=== PATIENT | male | born 1945 | race Caucasian/White ===

== ENCOUNTER 2017-04-27 08:02 | Outpatient (CLI) | payer MEDICARE, OTHER ==
[2017-04-27 13:00] LABS: ALBUMIN/GLOBULIN RATIO 1.5 (1.0-2.2); BILIRUBIN,TOTAL 0.7 mg/dL (0.2-1.0); BUN - BLOOD UREA NITROGEN 15 mg/dL (6-20); CALCIUM 8.8 mg/dL (8.5-10.3); CARBON DIOXIDE - CO2 26 mmol/L (21-32); CHLORIDE 105 mmol/L (101-111); CHOL/HDL RATIO 2.9 (<5.0); CHOLESTEROL 108 mg/dL; CREATININE 0.8 mg/dL (0.6-1.2); GFR - MDRD 96 (>89); GLUCOSE 149 mg/dL (70-100); HDL CHOLESTEROL 37 mg/dL; LDL/HDL RATIO 0.7 (<3.6); POTASSIUM 4.1 mmol/L (3.5-5.0); SODIUM 139 mmol/L (135-145); TOTAL PROTEIN 6.7 g/dL (6.7-8.2); TRIGLYCERIDES 219 mg/dL; VLDL CHOLESTEROL 44 mg/dL
[2017-04-27 13:09] LABS: HEMOGLOBIN A1C 0.7 g/dL
== END 2017-04-27 08:03 | disposition home or self-care (01) ==
LOC: LAB.WCP 08:02
PROVIDERS: ATTEND Family Medicine
DX: R73.01 Impaired fasting glucose (principal); E78.5 Hyperlipidemia, unspecified; Z12.5 Encounter for screening for malignant neoplasm of prostate
CPT/HCPCS: 36415; 80053; 80061; 83036; G0103; 84153

== ENCOUNTER 2017-05-10 14:05 | Outpatient (CLI) | payer MEDICARE, OTHER ==
--- NOTE | 2017-05-11 11:59 | Ultrasound Report ---
BILATERAL LOWER EXTREMITY ARTERIAL DUPLEX: 05/10/2017 CLINICAL INDICATION: Claudication. TECHNIQUE: Real-time sonographic vascular imaging was performed by the chief building inspector through the lower extremities utilizing both color-flow and Doppler spectral analysis. Multiple merchandiser retail representative static images were saved for review. RIGHT SIDE SITE PSV WAVEFORM STEN POWER DISTRIBUTION ENGINEER 123 biphasic PSFA 93 biphasic MSFA 82 triphasic DSFA 71 triphasic PFA 112 biphasic POP 58 triphasic VALENTIN 23 biphasic BUTTING SAW OPERATOR 83 triphasic PER 55 biphasic DPA 60 triphasic LEFT SIDE SITE PSV WAVEFORM STEN POWER DISTRIBUTION ENGINEER 94 triphasic PSFA 90 triphasic MSFA 82 triphasic DSFA 72 triphasic PFA 59 biphasic POP 56 triphasic VALENTIN 83 biphasic BUTTING SAW OPERATOR 65 triphasic PER 49 triphasic DPA 22 triphasic TECHNIQUE: Real-time scanning was performed. RIGHT LEG: Waveforms are predominantly triphasic. There is no evidence of a focal velocity increase to suggest a hemodynamically significant stenosis. LEFT LEG: Waveforms are predominantly triphasic. There is no evidence of a focal velocity increase to suggest a hemodynamically significant stenosis. IMPRESSION: NO EVIDENCE OF A FOCAL HEMODYNAMICALLY SIGNIFICANT ARTERIAL STENOSIS IN EITHER LEG. ALEJANDROD
== END 2017-05-10 14:06 | disposition home or self-care (01) ==
LOC: DI 14:05
PROVIDERS: ATTEND Family Medicine
DX: I73.9 Peripheral vascular disease, unspecified (principal)
CPT/HCPCS: 93925

== ENCOUNTER 2017-05-19 13:11 | Outpatient (CLI) | payer MEDICARE, OTHER ==
--- NOTE | 2017-05-19 18:19 | MRI Report ---
EXAM: MRI LUMBAR SPINE WITHOUT CONTRAST EXAM DATE: 05/19/2017 01:56 PM. CLINICAL HISTORY: 71-year-old with chronic low back pain and intermittent pain radiating to the hips and legs COMPARISON: None. TECHNIQUE: Multiplanar, multisequence T1-weighted and fluid-sensitive sequences of the lumbar spine f rom T12 to S1 without contrast. Other: None. FINDINGS: Spinal Cord: The conus terminates at L1-L2. No signal abnormality in the visualized spinal cord. Alignment: There is grade 1 retrolisthesis of L2 on L3, L3 on L4, L4 and L5. There is grade 1 anterol isthesis of L5 on S1. Bone Marrow: Five nxl-opu-[id number] lumbar vertebral bodies are assumed. Moderate endplate degenerative changes, Schmorl's node formation, moderate loss of disk, disk desiccation seen at L4-L5 and L5-S1. There is mild endplate degenerative change, Schmorl's node formation, minimal to mild loss of disk he ight and disk desiccation seen at L1-L2 , L2-L3 and L3-L4. There is endplate edema seen at L4-L5 and L5-S1 is likely degenerative in nature. No acute fracture. A T12 and L5 vertebral body hemangiomas are seen. Disk Levels/Facets: T12-L1: Unremarkable. L1-L2: Slight posterior disk bulge. Ligament thickening, arthritic facet disease, prominent dorsal ep idural fat. Mild spinal canal stenosis. Minimal bilateral neural femoral narrowing. L2-L3: Slight posterior disk bulge. Ligament thickening, arthritic facet disease, prominent dorsal ep idural fat. Mild spinal canal stenosis. Mild bilateral neural femoral narrowing. L3-L4: Slight posterior disk bulge. Ligament thickening, arthritic facet disease, prominent dorsal ep idural fat. Mild spinal canal stenosis. Mild bilateral neural femoral narrowing. L4-L5: Slight posterior disk bulge. Ligament thickening, arthritic facet disease, prominent dorsal ep idural fat. Mild spinal canal stenosis. Severe right and vcobigdw-rx-eaxwqc left neural femoral narro wing.. L5-S1: Slight posterior disk bulge. Bilateral facet disease. Effacement of the ventral thecal sac. Mo derate to severe bilateral neural foraminal narrowing. Musculature: Normal. No edema or fatty atrophy. Other: The visualized pelvic cavity is unremarkable. IMPRESSION: 1. There is grade 1 retrolisthesis of L2 on L3, L3 on L4, L4 and L5. 2. There is grade 1 anterolisthesis of L5 on S1. 3. Mild multilevel degenerative changes. L1-L2: Mild spinal canal stenosis. Minimal bilateral neural femoral narrowing. L2-L3: Mild spinal canal stenosis. Mild bilateral neural femoral narrowing. L3-L4: Mild spinal canal stenosis. Mild bilateral neural femoral narrowing. L4-L5: Mild spinal canal stenosis. Severe right and xehgtdxy-sv-agbjxh left neural femoral narrowing. L5-S1: Effacement of the ventral thecal sac. Moderate to severe bilateral neural foraminal narrowing. Comment: The following findings are so common in adults without low back pain that while we report th eir presence, they must be interpreted with caution and in the context of the clinical situation. (Re gaurang Piper et al, Spine 2001) Prevalence of findings in patients without low back pain: Disk degeneration (any evidence): 92% Disk desiccation/T2 signal loss: 83% Disk height loss: 56% Disk bulge: 64% Disk protrusion: 32% Annular tear/high intensity zone: 38% RADIA Referring Provider Line: [phone] SITE ID: [id number]
== END 2017-05-19 13:12 | disposition home or self-care (01) ==
LOC: DI 13:11
PROVIDERS: ATTEND Family Medicine
DX: M46.96 Unspecified inflammatory spondylopathy, lumbar region (principal); I73.9 Peripheral vascular disease, unspecified; M48.06 Spinal stenosis, lumbar region
CPT/HCPCS: 72148

== ENCOUNTER 2018-05-31 07:49 | Outpatient (CLI) | payer MEDICARE, OTHER ==
[2018-05-31 13:00] LABS: BASOPHILS # (AUTO) 0.1 10^3/uL (0.0-0.1); BASOPHILS % (AUTO) 0.7 %; EOSINOPHILS # (AUTO) 0.2 10^3/uL (0.0-0.7); HGB - HEMOGLOBIN 14.5 g/dL (14.0-18.0); LYMPHOCYTES # (AUTO) 1.8 10^3/uL (1.5-3.5); LYMPHOCYTES % (AUTO) 22.4 %; MEAN CORPUSCULAR HEMOGLOBIN 31.2 pg (27.0-31.0); MEAN CORPUSCULAR HGB CONC 33.4 g/dL (32.0-36.0); MEAN CORPUSCULAR VOLUME 93.3 fL (80.0-94.0); MEAN PLATELET VOLUME 10.6 fL (7.4-11.4); MONOCYTES # (AUTO) 0.7 10^3/uL (0.0-1.0); MONOCYTES % (AUTO) 8.8 %; NEUTROPHILS # (AUTO) 5.2 10^3/uL (1.5-6.6); NEUTROPHILS % (AUTO) 66.1 %; PLT - PLATELET COUNT 171 10^3/uL (130-450); RED BLOOD COUNT 4.65 10^6/uL (4.70-6.10); WHITE BLOOD COUNT 7.9 x10^3/uL (4.8-10.8)
[2018-05-31 13:11] LABS: ALBUMIN 4.1 g/dL (3.2-5.5); ALBUMIN/GLOBULIN RATIO 1.4 (1.0-2.2); ALKALINE PHOSPHATASE 54 IU/L (42-121); ALT ALANINE AMINOTRANSFERASE 25 IU/L (10-60); AST ASPARTATE AMINOTRANSFERASE 22 IU/L (10-42); BILIRUBIN,TOTAL 0.6 mg/dL (0.2-1.0); BUN - BLOOD UREA NITROGEN 19 mg/dL (6-20); CALCIUM 9.2 mg/dL (8.5-10.3); CARBON DIOXIDE - CO2 29 mmol/L (21-32); CHLORIDE 102 mmol/L (101-111); CHOL/HDL RATIO 2.8 (<5.0); CHOLESTEROL 94 mg/dL; CREATININE 0.8 mg/dL (0.6-1.2); GFR - MDRD 95 (>89); GLUCOSE 164 mg/dL (70-100); HB2 TOTAL 15.4 g/dL; HDL CHOLESTEROL 33 mg/dL; HEMOGLOBIN A1C 0.77 g/dL; HEMOGLOBIN A1C % 6.7 % (4.6-6.2); LDL CHOLESTEROL,CALCULATED 20 mg/dL; LDL/HDL RATIO 0.6 (<3.6); SODIUM 140 mmol/L (135-145); TOTAL PROTEIN 7.1 g/dL (6.7-8.2); VLDL CHOLESTEROL 41 mg/dL
== END 2018-05-31 07:50 | disposition home or self-care (01) ==
LOC: LAB.WCP 07:49
PROVIDERS: ATTEND Family Medicine
DX: I48.0 Paroxysmal atrial fibrillation (principal); R73.01 Impaired fasting glucose; E78.5 Hyperlipidemia, unspecified; Z12.5 Encounter for screening for malignant neoplasm of prostate; R94.6 Abnormal results of thyroid function studies
CPT/HCPCS: 36415; 80053; 80061; 83036; 84443; 85025; G0103; 83721; 84153

== ENCOUNTER 2019-02-22 08:38 | Outpatient (CLI) | payer MEDICARE, OTHER | END 2019-02-22 08:39 | disposition home or self-care (01) | LOC: SC 08:38 | PROVIDERS: ATTEND Nurse Practitioner Family | DX: G47.10 Hypersomnia, unspecified (principal); R06.81 Apnea, not elsewhere classified; G47.8 Other sleep disorders; R53.83 Other fatigue | CPT/HCPCS: 99204; G0463; 99212 ==

== ENCOUNTER 2019-02-26 20:32 | Outpatient (CLI) | payer MEDICARE, OTHER | END 2019-02-26 20:33 | disposition home or self-care (01) | LOC: SC 20:32 | PROVIDERS: ATTEND Internal Medicine Pulmonary Disease | DX: G47.33 Obstructive sleep apnea (adult) (pediatric) (principal); G47.61 Periodic limb movement disorder; I48.92 Unspecified atrial flutter; E66.01 Morbid (severe) obesity due to excess calories; Z68.41 Body mass index [BMI] 40.0-44.9, adult; Z71.3 Dietary counseling and surveillance | CPT/HCPCS: 95810 ==

== ENCOUNTER 2019-03-13 09:12 | Outpatient (CLI) | payer MEDICARE, OTHER | END 2019-03-13 09:13 | disposition home or self-care (01) | LOC: SC 09:12 | PROVIDERS: ATTEND Nurse Practitioner Family | DX: G47.33 Obstructive sleep apnea (adult) (pediatric) (principal); G47.61 Periodic limb movement disorder; I48.92 Unspecified atrial flutter | CPT/HCPCS: 99215; G0463; 99212 ==

== ENCOUNTER 2019-04-08 20:25 | Outpatient (CLI) | payer MEDICARE, OTHER | END 2019-04-08 20:26 | disposition home or self-care (01) | LOC: SC 20:25 | PROVIDERS: ATTEND Nurse Practitioner Family | DX: G47.33 Obstructive sleep apnea (adult) (pediatric) (principal); G47.61 Periodic limb movement disorder | CPT/HCPCS: 95811 ==

== ENCOUNTER 2019-04-30 10:55 | Outpatient (CLI) | payer MEDICARE, OTHER ==
[2019-05-14 11:21] VITALS: BP 116/70
--- NOTE | 2019-05-14 11:21 | SLEEP CARE CONSULTATION ---
Information from patient questionnaire entered by Gloria Linton. I have reviewed and concur with the information entered by Gloria Linton. This document represents the service I personally performed and the decisions made by me, Jannet Mosely, RN, MSN, [employer]. History of Present Illness Previous diagnosis: Severe, Obstructive Sleep Apnea-Hypopnea Syndrome AHI: 41.3 Reason for CPAP/BiPAP follow up: first compliance, with sleep study (review of manual titration results) Equipment type: CPAP Equipment obtained from: [facility] Mask style: Full face Mask brand: Respironics Prior sleep studies: Yes Year and Where: [address] [facility] additional information: Review of past medical history shows that patient had a cardioversion for arrhythmia with success and his rhythm was regular on sleep study. Sleep Study - Polysomnography Polysomnography findings: The quality of the study is good. CPAP was initiated at 4 cmH2O and titrated up to CPAP at [id number]. CPAP at 12 cmH2O appeared to be optimal (AHI of 2.3 per hour on the pressure). There was REM sleepon the pressure. Oxygen saturation was mildly low due to frequent residual respiratory events on lower CPAP settings. The patient appeared to have tolerated positive airway pressure therapy fairly well. The patients sleep efficiency was reduced due to a prolonged awakening near the end of the study. The sleep architecture was abnormal for sleep fragmentation and reduced amount of time spent in slow wave sleep (N3). There was moderate periodic limb movement of sleep not associated with sleep fragmentation. Cardiac rhythm was normal sinus rhythm without significant arrhythmia. No abnormal behavior (parasomnia) observed during the night. CPAP Compliance Data - Data Reviewed with Patient Average duration of nightly device use: 8H 52M Compliance rate %: 96.7 Current pressure setting (cmH2O): 4-15 Humidity settin Heated hose settin Average residual AHI: 1.4 Average large leak: 23 seconds Subjective Missed days of use due to: reports: other (sleep study - titration) Patient concerns: reports: mask leak noise (he is waking to mask leak noise when changes position, adjusting mask and going back to sleep. ), condensation in mask/hose (intermittent ), dry mouth, nose, throat (very little), other (straps garcia only if pulls mask too tight. ). denies: aerophagia, mask discomfort, air blowing in eyes, nasal congestion, epistaxis Observed to snore while using device: No Current pressure setting perceived as: comfortable On therapy, patient: reports: sleeping better, awakening more refreshed, being more awake and alert during the day, more rested overall. denies: drowsiness while driving Initial [place] Sleepiness Scale score: 11 Current [place] Sleepiness Scale score: 6 Allergies and Home Medications Known drug allergies: No Home medication list reviewed: Yes Allergy and home medication list: Medication Name (generic/name brand) Strength & Dosage Allopurinol (Zyloprim) 100mg tab one twice daily Amoxicillin 500mg cap for dental procedures Apixaban (Eliquis) 5mg tab one twice daily Indomethacin (Indocin) 25mg cap one twice daily Isosorbide Mononitrate ER (Imdur) 60mg tab one twice daily Micardis 40mg tab one every morning Nitroglycerin (Nitrostat) 0.4mg SL tab as directed for chest pain Simvastatin (Zocor) 40mg tab one every evening Sotalol (Betapace) 120mg tab one twice daily Tamsulosin (Flomax) 0.4mg cap one nightly Pantoprazole (Protonix) 40mg tab one every morning before bfast Aspirin 81mg chewable tab one every evening Multivitamin Cap one daily Review of Systems Review of systems same as previous: No Cardiovascular: reports: high blood pressure, chest pain, irregular heart rate or pulse ( Successful cardioversion in March 2019), leg or foot swelling Respiratory: reports: shortness of breath Urinary: reports: urgency Ear/Nose/Throat: reports: dry mouth/throat Endocrine: reports: sluggishness (less with cardioversion and CPAP), unexplained weakness Musculoskeletal: reports: joint pain Immunologic: reports: sneezing Physical Exam Blood Pressure: 116/70 Cuff size: long Heart Rate: 75 O2 Saturation: 94 Height: 5 ft 9.75 in Weight (kg): 128.639 kg Body Mass Index: 40.9 BMI Classification: Class 3 Impression and Plan 1. Obstructive Sleep Apnea-Hypopnea Syndrome, severe, with good treatment compliance and good apnea control. On CPAP therapy, the patient has better sleep quality and is more rested overall. His manual titration showed best apnea control 12 cmH20 at present weight. However, he is planning on losing more weight and I explained how less weight can reduce pressure requirements. Thus I will change his autoCPAP pressure to [id number] which was also recommended on his study. He is advised to contact me if pressure change is uncomfortable and advised of symptoms to report to have pressure adjusted if loses significant weight. I showed him how to use the ramp as well. Currently he states the starting pressure is too low so I will have it adjusted to 6cmH20 for his ramp start. For oral dryness, he is to keep the humidity at maximum. He can adjust the heated hose lower when he travels to warmer weather for the winter at the end of this month and only increase hose setting if condensation as shown on sample CPAP. He is also cautioned not to overfill the reservoir which can cause condensation. He has met insuurance compliance goals but if any problems while out of state, he is to contact this office. I can assist him over the phone. Otherwise he is to return for follow up on return to state next spring. Supply replacement schedule list given and rationale to change supplies discussed. Patient's apnea severity and rationale for treatment to reduce apnea, improve sleep quality and reduce cardiovascular and cerebrovascular events was reviewed. I also reviewed the benefit of consistent device use of CPAP for cardiac disease, arrhythmia. 2. Periodic limb movement , moderate, not fragmenting sleep on sleep study nor is it noted by his spouse. So no treatment indicated at this time. As noted last visit, further evaluation needed only if symptoms worsen. * Change CPAP pressure to 10-14 cmH2O * Adjust ramp to 6cmH20 * Adjust heated hose. * Schedule of CPAP supply replacement given. * Notify me if snoring with mask or feeling that the pressure is too much or too little * Attempt to lose weight * Return for follow up in 6 months upon [facility], or sooner if concerns arise I spent 100% of this [45 ] minute visit face to face with the patient with greater than 50% of this was spent time counseling the patient and coordination of care.
== END 2019-04-30 10:56 | disposition home or self-care (01) ==
LOC: SC 10:55
PROVIDERS: ATTEND Nurse Practitioner Family
DX: G47.33 Obstructive sleep apnea (adult) (pediatric) (principal); G47.61 Periodic limb movement disorder
CPT/HCPCS: 99215; G0463; 99212

== ENCOUNTER 2020-01-25 09:42 | Outpatient (CLI) | payer MEDICARE, OTHER ==
[2020-01-25 13:19] LABS: BASOPHILS # (AUTO) 0.1 10^3/uL (0.0-0.1); BASOPHILS % (AUTO) 0.9 %; CREATININE,URINE 182.9 mg/dL; EOSINOPHILS # (AUTO) 0.2 10^3/uL (0.0-0.7); EOSINOPHILS % (AUTO) 2.9 %; HGB - HEMOGLOBIN 13.5 g/dL (14.0-18.0); LYMPHOCYTES # (AUTO) 1.5 10^3/uL (1.5-3.5); LYMPHOCYTES % (AUTO) 21.5 %; MEAN CORPUSCULAR HEMOGLOBIN 30.1 pg (27.0-31.0); MICROALBUM/CREATININE RATIO,UR 33.9 ug/mg (<30.0); MICROALBUMIN,URINE 6.2 mg/dL (0-300.0); MONOCYTES # (AUTO) 0.7 10^3/uL (0.0-1.0); MONOCYTES % (AUTO) 10.3 %; NEUTROPHILS # (AUTO) 4.4 10^3/uL (1.5-6.6); PLT - PLATELET COUNT 183 10^3/uL (130-450); RED BLOOD COUNT 4.49 10^6/uL (4.70-6.10); RED CELL DISTRIBUTION WIDTH 14.1 % (12.0-15.0); WHITE BLOOD COUNT 6.9 x10^3/uL (4.8-10.8)
[2020-01-25 13:40] LABS: HB2 TOTAL 14.2 g/dL; HEMOGLOBIN A1C 0.66 g/dL; HEMOGLOBIN A1C % 6.4 % (4.6-6.2)
[2020-01-25 13:56] LABS: ALBUMIN 3.9 g/dL (3.2-5.5); ALBUMIN/GLOBULIN RATIO 1.3 (1.0-2.2); ALKALINE PHOSPHATASE 64 IU/L (42-121); ALT ALANINE AMINOTRANSFERASE 31 IU/L (10-60); AST ASPARTATE AMINOTRANSFERASE 28 IU/L (10-42); BILIRUBIN,TOTAL 1.1 mg/dL (0.2-1.0); BUN - BLOOD UREA NITROGEN 19 mg/dL (6-20); CALCIUM 8.8 mg/dL (8.5-10.3); CARBON DIOXIDE - CO2 26 mmol/L (21-32); CHLORIDE 105 mmol/L (101-111); CHOL/HDL RATIO 2.8 (<5.0); CHOLESTEROL 93 mg/dL; CREATININE 0.8 mg/dL (0.6-1.2); GLUCOSE 161 mg/dL (70-100); HDL CHOLESTEROL 33 mg/dL; LDL CHOLESTEROL,CALCULATED 17 mg/dL; LDL/HDL RATIO 0.5 (<3.6); SODIUM 136 mmol/L (135-145); TOTAL PROTEIN 6.8 g/dL (6.7-8.2); URIC ACID 5.5 mg/dL (2.6-7.2); VLDL CHOLESTEROL 43 mg/dL
== END 2020-01-25 23:59 | disposition home or self-care (01) ==
LOC: LAB.WCP 09:42
PROVIDERS: ATTEND Family Medicine
DX: I48.0 Paroxysmal atrial fibrillation (principal); R73.09 Other abnormal glucose; R78.5 Finding of other psychotropic drug in blood; E78.5 Hyperlipidemia, unspecified; M10.9 Gout, unspecified; I25.10 Atherosclerotic heart disease of native coronary artery without angina pectoris
CPT/HCPCS: 36415; 80053; 80061; 82043; 82570; 83036; 83721; 84443; 84550; 85025

== ENCOUNTER 2020-02-13 16:47 | Outpatient (CLI) | payer MEDICARE, OTHER ==
--- NOTE | 2020-02-13 16:29 | SLEEP CARE CONSULTATION ---
Information from patient questionnaire entered by Leta Bliss. I have reviewed and concur with the information entered by Leta Bliss. This document represents the service I personally performed and the decisions made by me, Jannet Mosley, RN, MSN, GOSPEL WORKER. History of Present Illness Service Date and Time: 02/13/2020 1600 Previous diagnosis: Severe, Obstructive Sleep Apnea-Hypopnea Syndrome AHI: 41.3 (in 2019) Reason for follow up: other (9 month) Equipment type: CPAP Equipment obtained from: [facility] (getting supplies as needed) Mask style: Full face Mask brand: Respironics (Dreamwear full face) Backup mask available: Yes (old mask) Last cushion change: last night Prior sleep studies: Yes Year and Where: 2019 - [facility] Type of Sleep Study: Polysomnography CPAP Compliance Data - Data Reviewed with Patient Average duration of nightly device use: 8.9 Compliance rate %: 100 (180 days) Current pressure setting (cmH2O): 10-14 Humidity settin Heated hose settin Average residual AHI: 0.1 Average large leak: 0 Subjective Patient concerns: reports: air blowing in eyes (rare - resolves with mask adjustment), condensation in mask/hose (1-2 times a week when up here ). denies: aerophagia, mask discomfort, mask leak noise, nasal congestion, dry mouth, nose, throat, epistaxis Observed to snore while using device: No Current pressure setting perceived as: too high (not comfortable at higher ranges) On therapy, patient: reports: sleeping better (dry lips occasional ), being more awake and alert during the day, more rested overall. denies: drowsiness while driving Initial [place] Sleepiness Scale score: 11 (in 2019) Allergies and Home Medications Home medication list reviewed: No (no changes) Review of Systems Review of systems same as previous: Yes Physical Exam Height: 5 ft 9.75 in Weight: 280 lb Body Mass Index: 40.4 BMI Classification: Morbidly Obese Impression and Plan 1. Obstructive Sleep Apnea-Hypopnea Syndrome, severe, with good treatment compliance and good apnea control. On CPAP therapy, the patient has better sleep quality and is more rested overall. He is pleased with benefit of treatment. Since starting his CPAP and his medication adjusted, his arrhythmia is much less. However, the pressure is not comfortable at higher settings. Thus after review of his compliance report, it showed that the 90% pressure range was [id number] but often it would increase to [id number]. Thus I will reduce his autoCPAP range to [id number]. He is to contact this office if the pressure change does not resolve symptoms or is uncomfortable. To reduce condensation, he is advised to reduce humidity or increase heated hose setting with rationale discussed. Patient is aware how to change settings. Patient is morbidly obese and advised to discuss weight loss with his PCP. I also explained how significant weight loss will reduce his apnea risk and CPAP pressure requirements. Symptoms to report for further PAP adjustment discussed. Patient's apnea severity and rationale for treatment to reduce apnea, improve sleep quality and reduce cardiovascular and cerebrovascular events was reviewed. I also reviewed the benefit of consistent device use of CPAP for hypertension, cardiac disease, arrhythmia. * Change auto CPAP pressure to 10-12 cmH2O * Adjust humidity/ heated hose. * Notify me if snoring with mask or feeling that the pressure is too much or too little * Attempt to lose weight * Call this office if any problems using CPAP * Return for follow up in 1 year , or sooner if concerns arise Visit Type: Telehealth Phone (to reduce risk of Covid 19 exposure) Patient Location: Home Location of Provider: Home Patient agrees and consents to this telehealth visit type: Yes Patient agrees to have their insurance billed: Yes Time Spent with Patient (minutes): 10+ Provider Statement: I spent 100% of the Telehealth Phone Call with the patient with greater than 50% spent counseling the patient and coordination of care.
== END 2020-02-13 16:48 | disposition home or self-care (01) ==
LOC: SC 16:47
PROVIDERS: ATTEND Nurse Practitioner Family
DX: G47.33 Obstructive sleep apnea (adult) (pediatric) (principal); E66.01 Morbid (severe) obesity due to excess calories; Z68.41 Body mass index [BMI] 40.0-44.9, adult

== ENCOUNTER 2021-01-23 08:31 | Outpatient (CLI) | payer MEDICARE, OTHER ==
--- NOTE | 2021-01-23 09:01 | SLEEP CARE CONSULTATION ---
Information from patient questionnaire entered by Leta Bliss. I have reviewed and concur with the information entered by Leta Bliss. This document represents the service I personally performed and the decisions made by , Silva Carrion ARNP. History of Present Illness Service Date and Time: 01/23/2021 0831 Previous diagnosis: Severe, Obstructive Sleep Apnea-Hypopnea Syndrome AHI: 41.3 (in 2019) Reason for follow up: annual (last seen 01/2020) Equipment type: CPAP Equipment obtained from: [facility] (getting supplies okay, but missed 2 shipments of supplies this year) Mask style: Full face Backup mask available: Yes (old mask) Last cushion change: 1 month Prior sleep studies: Yes Year and Where: 2019 - [facility] Type of Sleep Study: Polysomnography HPI additional information: SHAHEED THOMPSON was diagnosed to have severe, AHI 41.3, obstructive sleep apnea- hypopnea syndrome and returned today for CPAP therapy annual follow-up. CPAP Compliance Data - Data Reviewed with Patient Average duration of nightly device use: 8 hr 23 min Compliance rate %: 100 (180 days) Current pressure setting (cmH2O): 10-12 Humidity settin Heated hose settin Average residual AHI: 0.1 Average large leak: 0 sec Subjective Patient concerns: reports: mask leak noise (just when needs adjustment), dry mouth, nose, throat (occasionally, just adjust humidity as needed). denies: aerophagia, mask discomfort, air blowing in eyes, condensation in mask/hose, nasal congestion, epistaxis, other Observed to snore while using device: No Current pressure setting perceived as: comfortable On therapy, patient: reports: sleeping better, awakening more refreshed, being more awake and alert during the day, more rested overall. denies: drowsiness while driving Initial [place] Sleepiness Scale score: 11 (in 2019) Current [place] Sleepiness Scale score: 7 Allergies and Home Medications Home medication list reviewed: Yes (no new meds) Review of Systems Review of systems same as previous: Yes (no changes) Physical Exam Heart Rate: 63 O2 Saturation: 96 Height: 5 ft 9.75 in Weight: 290 lb Body Mass Index: 41.9 BMI Classification: Morbidly Obese Impression and Plan 1. Obstructive Sleep Apnea-Hypopnea Syndrome, severe, with excellent treatment compliance and excellent apnea control. On CPAP therapy, the patient has better sleep quality and is more rested overall. He has significant improvement of his sleep apnea and is satisfied with his treatment. He would like a DME supplier that will ship his supplies out of state. He was informed that he could use a [employer] company that could service him whether here or in [place]. He would like to think about it and [facility] as [facility] before transferring to different company. He is to call and let us know if we need to transfer DME services. Patient's apnea severity and rationale for treatment to reduce apnea, improve sleep quality and reduce cardiovascular and cerebrovascular events was reviewed. I also reviewed the benefit of consistent device use of CPAP for hypertension, cardiac disease, and arrhythmia. * Continue auto CPAP pressure at 10-12 cmH2O * Notify me if snoring with mask or feeling that the pressure is too much or too little * Attempt to lose weight * Call this office if any problems using CPAP * Return for follow up in 1 year, or sooner if concerns arise Counseling Topics: Spare mask, Weight loss health impact Visit Type: In Office Time Spent with Patient (minutes): 20 Provider Statement: I spent 100% of the Face to Face Visit with the patient with greater than 50% spent counseling the patient and coordination of care.
== END 2021-01-23 08:32 | disposition home or self-care (01) ==
LOC: SC 08:31
PROVIDERS: ATTEND Nurse Practitioner Family
DX: G47.33 Obstructive sleep apnea (adult) (pediatric) (principal); E66.01 Morbid (severe) obesity due to excess calories; Z68.41 Body mass index [BMI] 40.0-44.9, adult
CPT/HCPCS: 99213; G0463; 99212

== ENCOUNTER 2021-01-28 08:00 | Outpatient (CLI) | payer MEDICARE, OTHER ==
[2021-01-28 12:20] LABS: BASOPHILS # (AUTO) 0.1 10^3/uL (0.0-0.1); BASOPHILS % (AUTO) 0.8 %; EOSINOPHILS # (AUTO) 0.2 10^3/uL (0.0-0.7); EOSINOPHILS % (AUTO) 2.2 %; ESTIMATED AVERAGE GLUCOSE 146 mg/dL (70-100); HCT - HEMATOCRIT 42.8 % (42.0-52.0); HEMOGLOBIN A1c% 6.7 % (4.27-6.07); HGB - HEMOGLOBIN 13.8 g/dL (14.0-18.0); LYMPHOCYTES # (AUTO) 1.9 10^3/uL (1.5-3.5); LYMPHOCYTES % (AUTO) 24.3 %; MEAN CORPUSCULAR HEMOGLOBIN 30.9 pg (27.0-31.0); MEAN CORPUSCULAR HGB CONC 32.2 g/dL (32.0-36.0); MEAN CORPUSCULAR VOLUME 95.7 fL (80.0-94.0); MEAN PLATELET VOLUME 12.8 fL (7.4-11.4); MONOCYTES # (AUTO) 0.7 10^3/uL (0.0-1.0); MONOCYTES % (AUTO) 8.7 %; NEUTROPHILS # (AUTO) 4.9 10^3/uL (1.5-6.6); NEUTROPHILS % (AUTO) 63.3 %; PLT - PLATELET COUNT 179 10^3/uL (130-450); RED BLOOD COUNT 4.47 10^6/uL (4.70-6.10); RED CELL DISTRIBUTION WIDTH 14.1 % (12.0-15.0); WHITE BLOOD COUNT 7.7 x10^3/uL (4.8-10.8)
[2021-01-28 12:31] LABS: ALBUMIN/GLOBULIN RATIO 1.3 (1.0-2.2); ALKALINE PHOSPHATASE 60 IU/L (42-121); ALT ALANINE AMINOTRANSFERASE 28 IU/L (10-60); AST ASPARTATE AMINOTRANSFERASE 20 IU/L (10-42); BILIRUBIN,TOTAL 0.9 mg/dL (0.2-1.0); BUN - BLOOD UREA NITROGEN 21 mg/dL (6-20); CARBON DIOXIDE - CO2 28 mmol/L (21-32); CHLORIDE 102 mmol/L (101-111); CHOL/HDL RATIO 3.3 (<5.0); CHOLESTEROL 100 mg/dL; CREATININE 0.9 mg/dL (0.6-1.2); GFR - MDRD 82 (>89); GLUCOSE 183 mg/dL (70-100); HDL CHOLESTEROL 30 mg/dL; LDL CHOLESTEROL,CALCULATED 28 mg/dL; LDL/HDL RATIO 0.9 (<3.6); POTASSIUM 4.3 mmol/L (3.5-5.0); SODIUM 139 mmol/L (135-145); TRIGLYCERIDES 209 mg/dL; URIC ACID 5.6 mg/dL (2.6-7.2); VLDL CHOLESTEROL 42 mg/dL
[2021-01-28 12:38] LABS: THYROID STIMULATING HORMONE 2.94 uIU/mL (0.34-5.60)
== END 2021-01-28 23:59 | disposition home or self-care (01) ==
LOC: LAB.WCP 08:00
PROVIDERS: ATTEND Nurse Practitioner Family
DX: I48.0 Paroxysmal atrial fibrillation (principal); E78.5 Hyperlipidemia, unspecified; I25.10 Atherosclerotic heart disease of native coronary artery without angina pectoris; R73.03 Prediabetes; M10.9 Gout, unspecified
CPT/HCPCS: 36415; 80053; 80061; 83036; 83721; 84443; 84550; 85025

== ENCOUNTER 2022-01-05 07:23 | Outpatient (CLI) | payer MEDICARE, OTHER ==
[2022-01-05 12:03] LABS: BASOPHILS # (AUTO) 0.1 10^3/uL (0.0-0.1); BASOPHILS % (AUTO) 0.8 %; EOSINOPHILS # (AUTO) 0.2 10^3/uL (0.0-0.7); EOSINOPHILS % (AUTO) 2.7 %; HCT - HEMATOCRIT 42.1 % (42.0-52.0); HGB - HEMOGLOBIN 13.7 g/dL (14.0-18.0); LYMPHOCYTES # (AUTO) 2.6 10^3/uL (1.5-3.5); LYMPHOCYTES % (AUTO) 34.4 %; MEAN CORPUSCULAR HEMOGLOBIN 31.4 pg (27.0-31.0); MEAN CORPUSCULAR HGB CONC 32.5 g/dL (32.0-36.0); MEAN CORPUSCULAR VOLUME 96.3 fL (80.0-94.0); MEAN PLATELET VOLUME 12.7 fL (7.4-11.4); MONOCYTES # (AUTO) 0.6 10^3/uL (0.0-1.0); MONOCYTES % (AUTO) 8.1 %; NEUTROPHILS # (AUTO) 4.1 10^3/uL (1.5-6.6); NEUTROPHILS % (AUTO) 53.7 %; PLT - PLATELET COUNT 163 10^3/uL (130-450); RED BLOOD COUNT 4.37 10^6/uL (4.70-6.10); RED CELL DISTRIBUTION WIDTH 13.5 % (12.0-15.0); WHITE BLOOD COUNT 7.5 x10^3/uL (4.8-10.8)
[2022-01-05 12:19] LABS: ALBUMIN 3.9 g/dL (3.2-5.5); ALBUMIN/GLOBULIN RATIO 1.3 (1.0-2.2); ALKALINE PHOSPHATASE 58 IU/L (42-121); ALT ALANINE AMINOTRANSFERASE 30 IU/L (10-60); AST ASPARTATE AMINOTRANSFERASE 25 IU/L (10-42); BILIRUBIN,TOTAL 0.7 mg/dL (0.2-1.0); BUN - BLOOD UREA NITROGEN 17 mg/dL (6-20); CALCIUM 8.9 mg/dL (8.5-10.3); CARBON DIOXIDE - CO2 28 mmol/L (21-32); CHLORIDE 101 mmol/L (101-111); CHOL/HDL RATIO 3.3 (<5.0); CHOLESTEROL 105 mg/dL; CREATININE 0.8 mg/dL (0.6-1.2); GFR - MDRD 94 (>89); GLUCOSE 167 mg/dL (70-100); HDL CHOLESTEROL 32 mg/dL; LDL CHOLESTEROL,CALCULATED 20 mg/dL; LDL/HDL RATIO 0.6 (<3.6); POTASSIUM 4.1 mmol/L (3.5-5.0); SODIUM 138 mmol/L (135-145); TRIGLYCERIDES 264 mg/dL; VLDL CHOLESTEROL 53 mg/dL
[2022-01-05 12:24] LABS: THYROID STIMULATING HORMONE 3.7 uIU/mL (0.34-5.60)
== END 2022-01-05 07:24 | disposition home or self-care (01) ==
LOC: LAB.N 07:23
PROVIDERS: ATTEND Family Medicine
DX: I48.92 Unspecified atrial flutter (principal); I48.0 Paroxysmal atrial fibrillation; M10.9 Gout, unspecified; K21.9 Gastro-esophageal reflux disease without esophagitis; E78.5 Hyperlipidemia, unspecified; I25.10 Atherosclerotic heart disease of native coronary artery without angina pectoris; R73.03 Prediabetes
CPT/HCPCS: 36415; 80053; 80061; 81599; 83036; 83721; 84443; 85025

== ENCOUNTER 2022-09-23 08:56 | Outpatient (CLI) | payer MEDICARE, OTHER ==
[2022-09-23 12:42] LABS: BASOPHILS # (AUTO) 0.1 10^3/uL (0.0-0.1); BASOPHILS % (AUTO) 0.8 %; EOSINOPHILS # (AUTO) 0.1 10^3/uL (0.0-0.7); EOSINOPHILS % (AUTO) 1.8 %; HCT - HEMATOCRIT 41.4 % (42.0-52.0); HGB - HEMOGLOBIN 13.6 g/dL (14.0-18.0); LYMPHOCYTES # (AUTO) 2.2 10^3/uL (1.5-3.5); LYMPHOCYTES % (AUTO) 30.7 %; MEAN CORPUSCULAR HEMOGLOBIN 31.6 pg (27.0-31.0); MEAN CORPUSCULAR HGB CONC 32.9 g/dL (32.0-36.0); MEAN CORPUSCULAR VOLUME 96.1 fL (80.0-94.0); MEAN PLATELET VOLUME 12.7 fL (7.4-11.4); MONOCYTES # (AUTO) 0.6 10^3/uL (0.0-1.0); MONOCYTES % (AUTO) 8.5 %; NEUTROPHILS # (AUTO) 4.1 10^3/uL (1.5-6.6); NEUTROPHILS % (AUTO) 57.6 %; PLT - PLATELET COUNT 163 10^3/uL (130-450); RED BLOOD COUNT 4.31 10^6/uL (4.70-6.10); RED CELL DISTRIBUTION WIDTH 13.9 % (12.0-15.0); WHITE BLOOD COUNT 7.1 x10^3/uL (4.8-10.8)
[2022-09-23 12:45] LABS: CREATININE 0.8 mg/dL (0.6-1.2)
[2022-09-23 12:46] LABS: CREATININE,URINE 173.3 mg/dL; MICROALBUMIN,URINE 10.4 mg/dL (0-300.0)
[2022-09-23 12:57] LABS: ESTIMATED AVERAGE GLUCOSE 134 mg/dL (70-100); HEMOGLOBIN A1c% 6.3 % (4.27-6.07)
== END 2022-09-23 08:57 | disposition home or self-care (01) ==
LOC: LAB.N 08:56
PROVIDERS: ATTEND Physician Assistant
DX: I48.0 Paroxysmal atrial fibrillation (principal); R73.03 Prediabetes
CPT/HCPCS: 36415; 80048; 82043; 82570; 83036; 85025

== ENCOUNTER 2023-08-01 07:45 | Outpatient (CLI) | payer MEDICARE, OTHER ==
[2023-08-01 12:38] LABS: BASOPHILS # (AUTO) 0.1 10^3/uL (0.0-0.1); BASOPHILS % (AUTO) 0.8 %; EOSINOPHILS # (AUTO) 0.1 10^3/uL (0.0-0.7); EOSINOPHILS % (AUTO) 1.2 %; HCT - HEMATOCRIT 43.1 % (42.0-52.0); HGB - HEMOGLOBIN 13.9 g/dL (14.0-18.0); LYMPHOCYTES # (AUTO) 2.5 10^3/uL (1.5-3.5); LYMPHOCYTES % (AUTO) 26.6 %; MEAN CORPUSCULAR HEMOGLOBIN 30.4 pg (27.0-31.0); MEAN CORPUSCULAR HGB CONC 32.3 g/dL (32.0-36.0); MEAN CORPUSCULAR VOLUME 94.3 fL (80.0-94.0); MEAN PLATELET VOLUME 12.3 fL (7.4-11.4); MONOCYTES # (AUTO) 0.9 10^3/uL (0.0-1.0); MONOCYTES % (AUTO) 9.3 %; NEUTROPHILS # (AUTO) 5.7 10^3/uL (1.5-6.6); NEUTROPHILS % (AUTO) 61.7 %; PLT - PLATELET COUNT 217 10^3/uL (130-450); RED BLOOD COUNT 4.57 10^6/uL (4.70-6.10); RED CELL DISTRIBUTION WIDTH 14.5 % (12.0-15.0); WHITE BLOOD COUNT 9.2 x10^3/uL (4.8-10.8)
[2023-08-01 12:46] LABS: CREATININE,URINE 168.4 mg/dL; MICROALBUM/CREATININE RATIO,UR 20.8 ug/mg (<30.0); MICROALBUMIN,URINE 3.5 mg/dL
[2023-08-01 12:58] LABS: ALBUMIN 4.4 g/dL (3.2-5.5); ALBUMIN/GLOBULIN RATIO 1.8 (1.0-2.2); ALKALINE PHOSPHATASE 65 IU/L (42-121); ALT ALANINE AMINOTRANSFERASE 15 IU/L (10-60); AST ASPARTATE AMINOTRANSFERASE 16 IU/L (10-42); BILIRUBIN,TOTAL 0.8 mg/dL (0.2-1.0); BUN - BLOOD UREA NITROGEN 16 mg/dL (6-20); CALCIUM 9.4 mg/dL (8.5-10.3); CARBON DIOXIDE - CO2 29 mmol/L (21-32); CHLORIDE 104 mmol/L (101-111); CHOL/HDL RATIO 2.2 (<5.0); CHOLESTEROL 74 mg/dL; CREATININE 0.8 mg/dL (0.6-1.3); GFR - MDRD 94 (>89); GLUCOSE 150 mg/dL (74-104); HDL CHOLESTEROL 33 mg/dL; LDL CHOLESTEROL,CALCULATED 11 mg/dL; LDL/HDL RATIO 0.3 (<3.6); SODIUM 139 mmol/L (135-145); TOTAL PROTEIN 6.9 g/dL (6.4-8.9); TRIGLYCERIDES 150 mg/dL (48-352); VLDL CHOLESTEROL 30 mg/dL
[2023-08-01 13:33] LABS: ESTIMATED AVERAGE GLUCOSE 151 mg/dL (70-100); HEMOGLOBIN A1c% 6.9 % (4.27-6.07)
== END 2023-08-01 07:46 | disposition home or self-care (01) ==
LOC: LAB.N 07:45
PROVIDERS: ATTEND Physician Assistant
DX: I10 Essential (primary) hypertension (principal); R73.03 Prediabetes; E78.5 Hyperlipidemia, unspecified
CPT/HCPCS: 36415; 80053; 80061; 82043; 82570; 83036; 83721; 85025

== ENCOUNTER 2024-02-07 08:43 | Outpatient (CLI) | payer MEDICARE, OTHER ==
[2024-02-07 13:16] LABS: ALBUMIN 4.2 g/dL (3.2-5.5); ALBUMIN/GLOBULIN RATIO 1.4 (1.0-2.2); BILIRUBIN,TOTAL 1.2 mg/dL (0.2-1.0); CALCIUM 9.8 mg/dL (8.5-10.3); CREATININE 0.9 mg/dL (0.6-1.3); POTASSIUM 4.2 mmol/L (3.5-4.5); TOTAL PROTEIN 7.2 g/dL (6.4-8.9)
[2024-02-07 13:19] LABS: ESTIMATED AVERAGE GLUCOSE 140 mg/dL (70-100); HEMOGLOBIN A1c% 6.5 % (4.27-6.07)
[2024-02-07 13:36] LABS: THYROID STIMULATING HORMONE 2.96 uIU/mL (0.34-5.60)
== END 2024-02-07 08:44 | disposition home or self-care (01) ==
LOC: LAB.N 08:43
PROVIDERS: ATTEND Physician Assistant
DX: E11.9 Type 2 diabetes mellitus without complications (principal); R94.6 Abnormal results of thyroid function studies
CPT/HCPCS: 36415; 80053; 83036; 84443

== ENCOUNTER 2024-04-05 08:58 | Outpatient (CLI) | payer MEDICARE, OTHER ==
--- NOTE | 2024-04-05 09:33 | Sleep Patient Instructions ---
Sleep Center Visit Summary - Patient Visit Information Reason for Visit: 10-month follow-up - Patient Instructions Additional Instructions: You will continue with CPAP therapy with pressure set at 9-11 cmH2O. A supply prescription will be updated with your DME. I have added an order to update your PAP machine. Please call the office to schedule a compliance follow up once you get your new device. We encourage you to continue to try to lose weight. Please follow up with the sleep care office one month after obtaining new device. - Clinic Information Contact: [facility] [address] [place] [address] [email or web address] T: [phone]
--- NOTE | 2024-04-05 09:37 | SLEEP CARE CONSULTATION ---
Information from patient questionnaire entered by Chiqui Mobley. I have reviewed and concur with the information entered by Chiqui Mobley. This document represents the service I personally performed and the decisions made by me, Silva Carrion ARNP. History of Present Illness Service Date and Time: 04/05/2024 0858 Previous diagnosis: Severe, Obstructive Sleep Apnea-Hypopnea Syndrome AHI: 41.3 (in 2018) Reason for follow up: other (10 MONTH F/U DUE FOR NEW MACHINE) Equipment type: CPAP (PIERRE Dreamstation, s/u 03/26/2019) Equipment obtained from: Other ([facility]; getting supplies) Mask style: Full face Mask brand: Resmed (F20, AirTouch) Backup mask available: Yes Last cushion change: 2 weeks Prior sleep studies: Yes Year and Where: 2018 - [facility] Type of Sleep Study: Polysomnography HPI additional information: SHAHEED THOMPSON was diagnosed to have severe, AHI 41.3, obstructive sleep apnea- hypopnea syndrome and returned today for CPAP therapy ten month follow-up. Sleep Study - Results Type of Sleep Study: Polysomnography Prior sleep studies: Yes Year and Where: 2018 - [facility] CPAP Compliance Data - Data Reviewed with Patient Average duration of nightly device use: 7 HRS 46 MINS 8 SECS Compliance rate %: 100 (06/02/23-04/01/24; 305/305 days used) Current pressure setting (cmH2O): 9-11 Average residual AHI: 0.3 Average large leak: 52 secs Subjective Patient concerns: reports: mask discomfort, mask leak noise, condensation in mask/hose, dry mouth, nose, throat (changes with weather). denies: aerophagia, air blowing in eyes, nasal congestion, epistaxis Observed to snore while using device: No Current pressure setting perceived as: comfortable On therapy, patient: reports: sleeping better, awakening more refreshed, being more awake and alert during the day, more rested overall. denies: drowsiness while driving Initial [place] Sleepiness Scale score: 11 (in 2018) Current [place] Sleepiness Scale score: 8 (04/05/24) Allergies and Home Medications Known drug allergies: No Drug allergies reviewed: Yes Home medication list reviewed: Yes (as listed) Allergy and home medication list: Allergies No Known Drug Allergies Allergy (Verified 04/03/24 10:05) Home Medications Medication Instructions Recorded Confirmed Last Taken Type Isosorbide Dinitrate 60 mg PO DAILY 11/11/14 04/05/24 Unknown History Simvastatin [Zocor] 40 mg PO DAILY 11/11/14 04/05/24 Unknown History Tamsulosin [Flomax] 0.4 mg PO DAILY 11/11/14 04/05/24 Unknown History allopurinoL [Zyloprim] 100 mg PO BID 11/11/14 04/05/24 Unknown History Apixaban 5 mg ORAL BID 06/16/23 04/05/24 Unknown History Clopidogrel 75 mg ORAL DAILY 06/16/23 04/05/24 Unknown History Micardis Hct 40-12.5 mg Tablet 40 mg ORAL DAILY 06/16/23 04/05/24 Unknown History Nitroglycerin 0.4 mg SL PRN PRN MDD 1.2 06/16/23 04/05/24 Unknown History Pantoprazole 40 mg ORAL DAILY 06/16/23 04/05/24 Unknown History Amoxicillin See Rx Instructions .ROUTE .COMPLEX 04/05/24 04/05/24 Unknown History Empagliflozin [Jardiance] See Rx Instructions .ROUTE .COMPLEX 04/05/24 04/05/24 Unknown History Multivitamin See Rx Instructions .ROUTE .COMPLEX 04/05/24 04/05/24 Unknown History dilTIAZem HCL [Diltiazem 24Hr ER] See Rx Instructions .ROUTE .COMPLEX 04/05/24 04/05/24 Unknown History Review of Systems Review of systems same as previous: Yes (NO CHANGE) Physical Exam Vital signs obtained and entered by: CHIQUI Walton MA Blood Pressure: 109/59 (RIGHT ARM) Cuff size: regular Heart Rate: 69 O2 Saturation: 96 Height: 5 ft 9.75 in Weight: 265 lb 3.2 oz Weight change since last visit: 19 lb loss Body Mass Index: 38.3 BMI Classification: Obese Impression and Plan 1. Obstructive Sleep Apnea-Hypopnea Syndrome, severe, with good treatment compliance and good apnea control. On CPAP therapy, the patient has better sleep quality and is more rested overall. He has a Danni DreamStation that was last updated in March 2019. This machine has never been replaced by the recall. The patients CPAP is over 5 years old and of reasonable use. Thus, the CPAP will be updated. A DWO prescription will be made. Compliance guidelines for new device and follow up discussed. Patient's apnea severity and rationale for treatment to reduce apnea, improve sleep quality and reduce cardiovascular and cerebrovascular events was reviewed. I also reviewed the benefit of consistent device use of CPAP for hypertension, cardiac disease, arrhythmia. 2. Obesity, unspecified. Currently patients BMI is 38.3. He is losing weight since starting Jardiance. Obesity increases the risk of apnea, CPAP pressure requirements and overall health risks especially cardiovascular and diabetes. Thus patient is advised to continue to try to lose weight. * Continue auto CPAP pressure at 9-11 cmH2O * Update machine * Update supply prescription * Notify me if snoring with mask or feeling that the pressure is too much or too little * Attempt to lose weight * Call this office if any problems using CPAP * Return for follow up one month after obtaining new device, or sooner if concerns arise Counseling Topics: Spare mask, Weight loss health impact Prescriptions: Auto CPAP, Device supplies Plan: updated device and compliance follow up Visit Type: In Office Time Spent with Patient (minutes): 20 Provider Statement: I spent 100% of the Face to Face Visit with the patient with greater than 50% spent counseling the patient and coordination of care.
[2024-04-05 09:44] VITALS: BP 109/59; O2SAT 96
== END 2024-04-05 08:59 | disposition home or self-care (01) ==
LOC: SC 08:58
PROVIDERS: ATTEND Nurse Practitioner Family
DX: G47.33 Obstructive sleep apnea (adult) (pediatric) (principal); E66.9 Obesity, unspecified; Z68.38 Body mass index [BMI] 38.0-38.9, adult
CPT/HCPCS: 99213; G0463; 99212

== ENCOUNTER 2024-05-31 08:17 | Outpatient (CLI) | payer MEDICARE, OTHER ==
--- NOTE | 2024-05-31 08:55 | Sleep Patient Instructions ---
Sleep Center Visit Summary - Patient Visit Information Reason for Visit: First compliance with new device - Patient Instructions Additional Instructions: You were here for follow up of CPAP therapy. You will be continued on CPAP therapy with pressure at 9-11 cmH2O. You should follow up with sleep care in 12 months. You may contact us sooner for any questions or concerns. - Clinic Information Contact: [facility] [address] [place] [address] [email or web address] T: [phone]
--- NOTE | 2024-05-31 08:58 | SLEEP CARE CONSULTATION ---
Information from patient questionnaire entered by Kiko Mobley. I have reviewed and concur with the information entered by Kiko Mobley. This document represents the service I personally performed and the decisions made by me, Silva Carrion ARNP. History of Present Illness Service Date and Time: 05/31/2024816 Previous diagnosis: Severe, Obstructive Sleep Apnea-Hypopnea Syndrome AHI: 41.3 (in 2018) Reason for follow up: first compliance after device update Equipment type: CPAP (RESMED Airsense 11, s/u 04/17/24) Equipment obtained from: Other ([facility]; getting supplies) Mask style: Full face Mask brand: Resmed (AirTouch F20) Backup mask available: Yes Last cushion change: last week Prior sleep studies: Yes Year and Where: 2018 - [facility] Type of Sleep Study: Polysomnography HPI additional information: SHAHEED THOMPSON was diagnosed to have severe, AHI 41.3, obstructive sleep apnea- hypopnea syndrome and returned today for CPAP therapy first compliance after updating device follow-up. Sleep Study - Results Type of Sleep Study: Polysomnography Prior sleep studies: Yes [facility] and [facility] CP[facility] Compliance Data - Data Reviewed with Patient Average duration of nightly device use: 8 HRS 2 MINS Compliance rate %: 93 (04/17/24-05/16/24; days used) Current pressure setting (cmH2O): 9-11 Average residual AHI: 0.6 Central apnea: 0 Obstructive apnea: 0 Hypopnea: 0.6 Average large leak: 2.3 L/min Subjective Patient concerns: reports: other (air too low an onset of turning machine on). denies: aerophagia, mask discomfort, air blowing in eyes, mask leak noise, condensation in mask/hose, nasal congestion, dry mouth, nose, throat, epistaxis Observed to snore while using device: No Current pressure setting perceived as: comfortable On therapy, patient: reports: sleeping better, awakening more refreshed, being more awake and alert during the day, more rested overall. denies: drowsiness while driving Initial [place] Sleepiness Scale score: 11 (in 2019) Current [place] Sleepiness Scale score: 9 (05/31/24) Allergies and Home Medications Known drug allergies: No Drug allergies reviewed: Yes Home medication list reviewed: Yes (no changes) Allergy and home medication list: Allergies No Known Drug Allergies Allergy (Verified 05/31/24 08:30) Review of Systems Review of systems same as previous: Yes (NO CHANGE) Physical Exam Vital signs obtained and entered by: KIKO Walton MA Blood Pressure: 120/71 (LEFT ARM) Cuff size: regular Heart Rate: 67 O2 Saturation: 97 Height: 5 ft 9.75 in Weight: 276 lb 3.2 oz Weight change since last visit: 11 gain Body Mass Index: 39.9 BMI Classification: Obese Impression and Plan 1. Obstructive Sleep Apnea-Hypopnea Syndrome, severe, with good treatment compliance and good apnea control. On CPAP therapy, the patient has better sleep quality and is more rested overall. He says he thinks the ramp starting pressure is too low. He is getting a "flap" noise when breathing out at the beginning of the night that resolves when the pressure increases. His ramp starting pressure is at 5 cmH2O. I increased his ramp starting pressure to 6 cmH2O and limited it to 5 minutes of ramp time to see if this will resolve the issue. He will let us know if he needs further assistance. Patient's apnea severity and rationale for treatment to reduce apnea, improve sleep quality and reduce cardiovascular and cerebrovascular events was reviewed. I also reviewed the benefit of consistent device use of CPAP for hypertension, cardiac disease, arrhythmia. 2. Obesity, unspecified. Currently patients BMI is 39.9. Obesity increases the risk of apnea, CPAP pressure requirements and overall health risks especially cardiovascular and diabetes. Thus patient is advised to lose weight. * Continue auto CPAP pressure at 9-11 cmH2O * Notify me if snoring with mask or feeling that the pressure is too much or too little * Attempt to lose weight * Call this office if any problems using CPAP * Return for follow up in 12 months, or sooner if concerns arise Counseling Topics: Spare mask, Weight loss health impact Follow up with Sleep Care in: 1 year Visit Type: In Office Time Spent with Patient (minutes): 20 Provider Statement: I spent 100% of the Face to Face Visit with the patient with greater than 50% spent counseling the patient and coordination of care.
[2024-05-31 09:03] VITALS: BP 120/71; O2SAT 97
== END 2024-05-31 08:18 | disposition home or self-care (01) ==
LOC: SC 08:17
PROVIDERS: ATTEND Nurse Practitioner Family
DX: G47.33 Obstructive sleep apnea (adult) (pediatric) (principal); E66.9 Obesity, unspecified; Z68.39 Body mass index [BMI] 39.0-39.9, adult
CPT/HCPCS: 99213; G0463; 99212